=== PATIENT | female | born 1950 | race Caucasian/White ===

== ENCOUNTER 2024-05-20 14:31 | Inpatient (IN) | payer OTHER ==
[~2024-05-20] VITALS: Ht 165.1 cm; Wt 65.8 kg
[2024-05-20 17:31] VITALS: BP 145/62
[2024-05-20] MEDS ORDERED: IMDUR SA30 MG PO (17:38)
[2024-05-20] MEDS ORDERED: TYLENOL325 M1 PO (17:39)
[2024-05-20] MEDS ORDERED: TRAZODONE100 MG PO (17:40)
[2024-05-20] MEDS ORDERED: CYMBALTA30 MG PO (17:40)
[2024-05-20] MEDS ORDERED: ASPIRIN CHEWABL81 MG PO (17:41)
[2024-05-20] MEDS ORDERED: VENT7GM INH (17:41)
[2024-05-20] MEDS ORDERED: AIRDUO DIGIHAL1 EAC2 INH (17:42)
[2024-05-20] MEDS ORDERED: LIPITOR40 MG PO (17:43)
[2024-05-20] MEDS ORDERED: ROPINIROLE HYD0.5 MG PO (17:44)
[2024-05-20] MEDS ORDERED: TOPROL XL25 MG PO (17:45)
[2024-05-20] MEDS ORDERED: LORazepam 2 MG/ML VIAL IM PRN (17:50)
[2024-05-20] MEDS ORDERED: LORazepam 1 MG TAB PO PRN (17:50)
[2024-05-20] MEDS ORDERED: Ziprasidone Mesylate 20 MG VIAL IM PRN (17:50)
[2024-05-20] MEDS ORDERED: MG-AL HYDROXIDE/SIMETICONE 30 ML UDC PO PRN (18:00)
[2024-05-20] MEDS ORDERED: ACETAMINOPHEN 325 MG TAB PO PRN (18:00)
[2024-05-20] MEDS ORDERED: Magnesium Hydroxide 30 ML UDC PO PRN (18:00)
[2024-05-20 20:45] VITALS: BP 145/62
[2024-05-20] MEDS ORDERED: Mirtazapine 15 MG TAB PO SCH (21:00)
[2024-05-20] MEDS ORDERED: SERTRALINE HYD100 MG PO (21:04)
[2024-05-20] MEDS ORDERED: QUETIAPINE FUM100 M1 PO (21:05)
[2024-05-20 21:08] LABS: BILIRUBIN Negative (Negative); BLOOD Negative (Negative); CLARITY Clear (Clear); COLOR Yellow (Yellow); GLUCOSE Negative (Negative); KETONE Negative (Negative); LEUKO ESTERASE Negative (Negative); NITRITE Negative (Negative); UROBILINOGEN 0.2 E.U./dl (0.0-1.0)
[2024-05-20 21:18] LABS: WBC 0-2 wbc/hpf (0-5)
[2024-05-21 06:32] LABS: BASO # 0.1 10*3/uL (0.0-0.1); BASO % 0.5 % (0.0-1.0); EOS # 0.2 10*3/uL (0.0-0.4); EOS % 2.6 % (1.0-4.0); HEMATOCRIT 37.8 % (37.0-47.0); LYMPH # 2.6 10*3/uL (1.3-4.4); LYMPH % 28.2 % (27.0-41.0); MEAN CORPUSCULAR HGB CONC 32.3 g/dl (33.0-37.0); MEAN PLATELET VOLUME 9.4 fl (9.6-12.3); MONO # 0.8 10*3/uL (0.1-1.0); MONO % 8.2 % (3.0-9.0); NEUT # 5.4 10*3/uL (2.3-7.9); NEUT % 59.2 % (47.0-73.0); PLATELET COUNT AUTOMATED 304 10*3/uL (130-400); WHITE BLOOD COUNT 9.2 10*3/uL (4.8-10.8)
[2024-05-21 06:45] LABS: ALKALINE PHOSPHATASE 78 U/L (46-116); BUN 10 mg/dl (9-23); CHLORIDE 108 mmol/L (98-107); CHOLESTEROL 222 mg/dL (<200); LDL CHOLESTEROL 125 mg/dL (9-159); SGPT/ALT 8 U/L (5-49); TOTAL PROTEIN 5.8 gm/dL (6.0-8.0); TRIGLYCERIDES 207 mg/dl (<150)
[2024-05-21] MEDS ORDERED: ACETAMINOPHEN 325 MG TAB PO PRN (07:00)
[2024-05-21] MEDS ORDERED: Albuterol Sulfate 2.5 MG/3 ML VIAL NEB PRN (07:00)
[2024-05-21 08:00] VITALS: BP 152/86
[2024-05-21] MEDS ORDERED: CYANOCOBALAMIN 1,000 MCG/ML VIAL IM SCH (08:00)
[2024-05-21] MEDS ORDERED: Nicotine 21 MG PATCH T SCH (09:00)
[2024-05-21] MEDS ORDERED: ISOSORBIDE MONONITRATE 30 MG TAB PO SCH (09:00)
[2024-05-21] MEDS ORDERED: Duloxetine Hydrochloride 30 MG CAP PO SCH ×2 (09:00)
[2024-05-21] MEDS ORDERED: METOPROLOL SUCCINATE XR 25 MG TAB PO SCH (09:00)
[2024-05-21] MEDS ORDERED: ASPIRIN, CHEWABLE 81 MG TAB PO SCH (09:00)
[2024-05-21] MEDS ORDERED: Cholecalciferol 5,000 IU CAP (125 MCG) PO SCH (09:00)
[2024-05-21 20:00] VITALS: BP 114/60
[2024-05-21] MEDS ORDERED: ATORVASTATIN CALCIUM 40 MG TABLET PO SCH (21:00)
[2024-05-22 07:49] LABS: BASO % 0.5 % (0.0-1.0); EOS # 0.3 10*3/uL (0.0-0.4); EOS % 3.6 % (1.0-4.0); HEMATOCRIT 37.2 % (37.0-47.0); LYMPH # 2.3 10*3/uL (1.3-4.4); LYMPH % 25.9 % (27.0-41.0); MEAN CELL VOLUME 91.6 fl (81.0-99.0); MEAN CORPUSCULAR HGB 29.1 pg (27.0-31.0); MEAN CORPUSCULAR HGB CONC 31.7 g/dl (33.0-37.0); MEAN PLATELET VOLUME 9.5 fl (9.6-12.3); MONO # 0.8 10*3/uL (0.1-1.0); NEUT # 5.2 10*3/uL (2.3-7.9); PLATELET COUNT AUTOMATED 281 10*3/uL (130-400); RED BLOOD COUNT 4.06 10*6/uL (4.10-5.10); RED CELL DISTRI WIDTH 14.5 % (0-14.5); WHITE BLOOD COUNT 8.7 10*3/uL (4.8-10.8)
[2024-05-22 08:00] VITALS: BP 136/58
[2024-05-22 08:18] LABS: ALKALINE PHOSPHATASE 93 U/L (46-116); BUN 10 mg/dl (9-23); CHLORIDE 103 mmol/L (98-107); SGPT/ALT 11 U/L (5-49); TOTAL PROTEIN 5.8 gm/dL (6.0-8.0)
[2024-05-22] MEDS ORDERED: Duloxetine Hydrochloride 30 MG CAP PO SCH (09:00)
[2024-05-22 20:00] VITALS: BP 143/64
[2024-05-22] MEDS ORDERED: Duloxetine Hydrochloride 60 MG CAP PO SCH (21:00)
[2024-05-23 20:00] VITALS: BP 142/63
[2024-05-23] MEDS ORDERED: RAMELTEON 8 MG TAB PO SCH (21:00)
[2024-05-24 07:37] VITALS: BP 132/55
[2024-05-24 20:00] VITALS: BP 123/60
[2024-05-24] MEDS ORDERED: clonAZEPAM 0.5 MG TAB PO SCH (21:00)
[2024-05-24] MEDS ORDERED: Duloxetine Hydrochloride 60 MG CAP PO SCH (21:00)
[2024-05-25 08:00] VITALS: BP 161/66
[2024-05-25] MEDS ORDERED: hydrOXYzine 50 MG CAP PO PRN (09:30)
[2024-05-25] MEDS ORDERED: Prochlorperazine Maleate 10 MG TAB PO PRN (09:35)
[2024-05-25] MEDS ORDERED: Prochlorperazine Edisylate 10 MG/2 ML VIAL IM PRN (09:55)
[2024-05-25] MEDS ORDERED: clonAZEPAM 1 MG TAB PO SCH (21:00)
[2024-05-25 22:00] VITALS: BP 126/50
[2024-05-26 08:04] VITALS: BP 115/77
[2024-05-26 20:00] VITALS: BP 118/43
[2024-05-26] MEDS ORDERED: clonAZEPAM 2 MG TAB PO SCH (21:00)
[2024-05-27 07:57] VITALS: BP 135/58
[2024-05-27] MEDS ORDERED: Duloxetine Hydrochloride 30 MG CAP PO ONE (10:25)
[2024-05-27] MEDS ORDERED: LIDOCAINE 1 EA PATCH T ONE (14:50)
[2024-05-27 19:18] VITALS: BP 141/62
[2024-05-27] MEDS ORDERED: Duloxetine Hydrochloride 30 MG CAP PO SCH (21:00)
[2024-05-28 07:59] VITALS: BP 143/81
[2024-05-28] MEDS ORDERED: Duloxetine Hydrochloride 30 MG CAP PO SCH (09:00)
[2024-05-28] MEDS ORDERED: LIDOCAINE 1 EA PATCH T SCH (09:00)
[2024-05-28 20:00] VITALS: BP 143/63
[2024-05-28] MEDS ORDERED: Amitriptyline Hydrochloride 50 MG TAB PO SCH (21:00)
[2024-05-29 07:55] VITALS: BP 126/52
[2024-05-29] MEDS ORDERED: B COMPLEX1 EACH PO (14:54)
[2024-05-29] MEDS ORDERED: VITAMIN D3125 MC1 PO (14:54)
[2024-05-29 20:00] VITALS: BP 123/78
[2024-05-29] MEDS ORDERED: Amitriptyline Hydrochloride 50 MG TAB PO SCH (21:00)
[2024-05-30 08:00] VITALS: BP 130/72
[2024-05-30 20:00] VITALS: BP 116/41
[2024-05-30] MEDS ORDERED: Amitriptyline Hydrochloride 50 MG TAB PO SCH (21:00)
[2024-05-31] MEDS ORDERED: Water, Sterile 10 ML VIAL ONE (00:19)
[2024-05-31 09:01] VITALS: BP 134/58
[2024-05-31 10:21] LABS: BASO % 0.5 % (0.0-1.0); EOS # 0.5 10*3/uL (0.0-0.4); EOS % 5.4 % (1.0-4.0); HEMATOCRIT 35.7 % (37.0-47.0); LYMPH # 2.2 10*3/uL (1.3-4.4); LYMPH % 25.1 % (27.0-41.0); MEAN CELL VOLUME 88.8 fl (81.0-99.0); MEAN CORPUSCULAR HGB 28.6 pg (27.0-31.0); MEAN CORPUSCULAR HGB CONC 32.2 g/dl (33.0-37.0); MEAN PLATELET VOLUME 9.1 fl (9.6-12.3); MONO # 0.9 10*3/uL (0.1-1.0); MONO % 10.6 % (3.0-9.0); NEUT # 4.9 10*3/uL (2.3-7.9); NEUT % 57.5 % (47.0-73.0); PLATELET COUNT AUTOMATED 271 10*3/uL (130-400); RED BLOOD COUNT 4.02 10*6/uL (4.10-5.10); RED CELL DISTRI WIDTH 14.5 % (0-14.5); WHITE BLOOD COUNT 8.6 10*3/uL (4.8-10.8)
[2024-05-31 10:45] LABS: ALKALINE PHOSPHATASE 98 U/L (46-116); BUN 13 mg/dl (9-23); CHLORIDE 105 mmol/L (98-107); POTASSIUM 4.4 mmol/L (3.4-5.1); SGPT/ALT 8 U/L (5-49); TOTAL PROTEIN 6.2 gm/dL (6.0-8.0)
[2024-05-31 20:00] VITALS: BP 133/78
[2024-05-31] MEDS ORDERED: RAMELTEON 8 MG TAB PO SCH (21:00)
[2024-05-31] MEDS ORDERED: Memantine Hydrochloride 5 MG TAB PO SCH (21:00)
[2024-06-01 08:34] VITALS: BP 134/58
[2024-06-01] MEDS ORDERED: Rivastigmine Tartrate 4.6 MG/24 HR PATCH T SCH (09:00)
[2024-06-01 20:00] VITALS: BP 132/62
[2024-06-01] MEDS ORDERED: Amitriptyline Hydrochloride 50 MG TAB PO SCH (21:00)
[2024-06-02 07:51] VITALS: BP 144/56
[2024-06-02] MEDS ORDERED: LIDOCAINE 1 EA PATCH T ONE (14:10)
[2024-06-02] MEDS ORDERED: RISPERIDONE 0.25 MG TAB PO SCH (16:00)
[2024-06-02 20:00] VITALS: BP 132/76
[2024-06-03 08:00] VITALS: BP 172/86
[2024-06-03] MEDS ORDERED: LIDOCAINE 1 EA PATCH T SCH (09:00)
[2024-06-03 20:00] VITALS: BP 106/61
[2024-06-03] MEDS ORDERED: QUETIAPINE FUMARATE 50 MG TAB PO SCH (21:00)
[2024-06-04 08:00] VITALS: BP 147/59
[2024-06-04] MEDS ORDERED: RIVASTIGMINE1 EACH T (09:48)
[2024-06-04] MEDS ORDERED: AMITRIPTYLINE50 MG PO (09:49)
[2024-06-04] MEDS ORDERED: QUETIAPINE FUMA50 M1 PO (09:49)
[2024-06-04] MEDS ORDERED: Lidoderm 5% Patch T (09:49)
[2024-06-04] MEDS ORDERED: NAMENDA-5 PO (09:49)
[2024-06-04] MEDS ORDERED: B121000 MCG/1 IM (10:18)
[2024-06-04 20:00] VITALS: BP 127/84
[2024-06-05 08:24] VITALS: BP 114/58
== END 2024-06-05 13:40 | disposition home health service (06) | DRG 885 ==
LOC: 3N 14:31
PROVIDERS: Nurse Practitioner; Student in an Organized Health Care Education/Training Program; ADMIT Psychiatry & Neurology Psychiatry; ATTEND Psychiatry & Neurology Psychiatry
PROC: GZHZZZZ Group Psychotherapy (ICD-10-PCS; principal; 2024-05-24)
PROC: GZ52ZZZ Individual Psychotherapy, Cognitive (ICD-10-PCS; 2024-05-24)
PROC: GZ56ZZZ Individual Psychotherapy, Supportive (ICD-10-PCS; 2024-05-24)
DX: F33.2 Major depressive disorder, recurrent severe without psychotic features (principal); I11.0 Hypertensive heart disease with heart failure; G92.8 Other toxic encephalopathy; E44.0 Moderate protein-calorie malnutrition; R45.851 Suicidal ideations; J43.9 Emphysema, unspecified; D64.9 Anemia, unspecified; F41.9 Anxiety disorder, unspecified; I50.9 Heart failure, unspecified; J44.9 Chronic obstructive pulmonary disease, unspecified; E78.5 Hyperlipidemia, unspecified; G25.81 Restless legs syndrome; F34.1 Dysthymic disorder; E78.2 Mixed hyperlipidemia; F17.210 Nicotine dependence, cigarettes, uncomplicated; Z90.49 Acquired absence of other specified parts of digestive tract; Z88.6 Allergy status to analgesic agent; Z88.8 Allergy status to other drugs, medicaments and biological substances; Z68.24 Body mass index [BMI] 24.0-24.9, adult